=== PATIENT | male | born 1950 | race Caucasian/White ===

== ENCOUNTER 2017-09-02 06:37 | Day surgery (SDC) | payer BC, OTHER ==
[2017-09-01 09:22] VITALS: BMI 30.2
[~2017-09-02 06:37] MED LIST: CHONDROITIN SU A/HYALUR SOD 1 KIT IO ONE; EPINEPHrine/PF 1 MG/1 ML (1:1,000) AMPULE SQ ONE; LIDOCAINE HCL 1% PRESERVATIVE FREE - 30ML VIAL IO ONE; LIDOCAINE HCL 4% PRESERVE-FREE 5 ML AMP TP ONE
[2017-09-02 06:52] VITALS: TEMP 98.1
[2017-09-02] MEDS ORDERED: FLURBIPROFEN 0.03% OPHTH SOLN 2.5 ML BOTTLE ONE (07:00)
[2017-09-02] MEDS ORDERED: TROPICAMIDE 1% OPHTH SOLN 15 ML BOTTLE ONE (07:00)
[2017-09-02] MEDS ORDERED: CYCLOPENTOLATE HCL 1% OPHTH SOLN 2 ML BOTTLE ONE (07:00)
[2017-09-02] MEDS ORDERED: PHENYLEPHRINE 2.5% OPHTH SOLN 15 ML BOTTLE ONE (07:00)
[2017-09-02] MEDS: TROPICAMIDE 1% OPHTH SOLN 15 ML BOTTLE OP SCH ×2 (07:12→07:16)
[2017-09-02] MEDS: PHENYLEPHRINE 2.5% OPHTH SOLN 15 ML BOTTLE OP SCH ×2 (07:12→07:16)
[2017-09-02] MEDS: FLURBIPROFEN 0.03% OPHTH SOLN 2.5 ML BOTTLE OP SCH ×2 (07:12→07:15)
[2017-09-02] MEDS: CYCLOPENTOLATE HCL 1% OPHTH SOLN 2 ML BOTTLE OP SCH ×2 (07:12→07:15)
[2017-09-02] MEDS ORDERED: LIDOCAINE HCL 4% PRESERVE-FREE 5 ML AMP ONE (07:22)
[2017-09-02] MEDS ORDERED: BSS (NA/CA/MG/K) BALANCED SALT SOLUTION OPHTH SOLN 15 ML BOTTLE ONE (07:23)
[2017-09-02] MEDS ORDERED: LIDOCAINE HCL/PF 1% SDV 5ML VIAL ONE (07:23)
[2017-09-02] MEDS ORDERED: POVIDONE-IODINE 5% OPHTHALMIC PREP 30 ML SOLUTION ONE (07:23)
[2017-09-02] MEDS ORDERED: EPINEPHrine/PF 1 MG/1 ML (1:1,000) AMPULE ONE (07:23)
[2017-09-02] MEDS ORDERED: GLYCOPYRROLATE 0.2 MG/1 ML VIAL ONE (08:07)
[2017-09-02] MEDS ORDERED: MIDAZOLAM HCL 2 MG/2 ML SINGLE DOSE VIAL ONE (08:08)
[2017-09-02] MEDS ORDERED: POVIDONE-IODINE 5% OPHTHALMIC PREP 30 ML SOLUTION OD ONE (08:10)
[2017-09-02] MEDS ORDERED: LIDOCAINE HCL 4% PRESERVE-FREE 5 ML AMP TP ONE (08:10)
[2017-09-02] MEDS ORDERED: LIDOCAINE HCL 1% PRESERVATIVE FREE - 30ML VIAL IO ONE (08:15)
[2017-09-02] MEDS ORDERED: CHONDROITIN SU A/HYALUR SOD 1 KIT IO ONE (08:16)
[2017-09-02] MEDS ORDERED: EPINEPHrine/PF 1 MG/1 ML (1:1,000) AMPULE SQ ONE (08:19)
[2017-09-02] MEDS ORDERED: CIPROFLOXACIN HCL 0.3% OPHTH 2.5ML BOTTLE OP SCH (09:00)
[2017-09-02] MEDS ORDERED: CHONDROITIN SU A/HYALUR SOD 1 KIT ONE (09:43)
[2017-09-03 18:25] VITALS: BP 120/60; PULSE 70
--- NOTE | 2017-09-03 21:05 | SPEC ---
DATE OF OPERATION: 09/02/2017 PREOPERATIVE DIAGNOSIS: Complex cataract right eye. POSTOPERATIVE DIAGNOSIS: Complex cataract right eye. PROCEDURE: Planned phacoemulsification posterior chamber lens implantation right eye. ANESTHESIA: Topical. SURGEON: Kady Hamlin M.D. COMPLICATIONS: None. DESCRIPTION OF PROCEDURE: The patient was taken to the operating room after preoperative drops were given to prepare the patient for dilation and surgery. He was then prepped and draped in the usual manner for sterile ophthalmic surgery. After anesthesia began intravenous light fluids and light sedation. The patient then had multiple speculum was inserted into the right eye. The pupil was noted to be very small despite many dilating drops, and multiple side port stab incisions were made for potential pupillary dilators. Infusion of preservative free lidocaine along with Viscoat were then inserted into the eye. The pupil did dilate somewhat, and some additional pupillary stretch was given through the side port incisions. At this time, a 360-degree capsulorrhexis was performed after the temporal incision was made into the anterior chamber, and this was completed successfully. The nucleus was then hydrodissected with balanced saline solution, and then the nucleus was then removed from the eye with phacoemulsification, cortical cleanup was performed, and the posterior capsule was polished under Provisc. A posterior chamber lens was then inserted in the bag and well centered. The remainder of the Viscoat and Provisc were removed from the eye without complications. At this time, the incision was attempted to self seal but did not, and 2 sutures were placed for better wound closure. The sutures were sclerotized and then the knots were then buried in the cornea. The surgery was completed in an uncomplicated fashion, and the patient went to the recovery area in stable condition. KADY HAMLIN M.D. [id number]
== END 2017-09-02 10:45 | disposition home or self-care (01) ==
LOC: JASU-SURG 06:37
PROVIDERS: ATTEND Ophthalmology
PROC: 08RJ3JZ Replacement of Right Lens with Synthetic Substitute, Percutaneous Approach (ICD-10-PCS; principal; 2017-09-02 08:00)
DX: H26.9 Unspecified cataract (principal); H57.04 Mydriasis

== ENCOUNTER 2017-09-30 08:10 | Day surgery (SDC) | payer BC, OTHER ==
[2017-09-29 08:09] VITALS: BMI 30.2
[2017-09-30 08:38] VITALS: TEMP 98
[2017-09-30] MEDS ORDERED: FLURBIPROFEN 0.03% OPHTH SOLN 2.5 ML BOTTLE ONE (08:42)
[2017-09-30] MEDS ORDERED: TROPICAMIDE 1% OPHTH SOLN 15 ML BOTTLE ONE ×2 (08:43→09:02)
[2017-09-30] MEDS ORDERED: PHENYLEPHRINE 2.5% OPHTH SOLN 15 ML BOTTLE ONE (08:43)
[2017-09-30] MEDS ORDERED: CYCLOPENTOLATE HCL 1% OPHTH SOLN 2 ML BOTTLE ONE (08:43)
[2017-09-30] MEDS ORDERED: OFLOXACIN 0.3% OPHTHALMIC SOLUTION 5 ML BOTTLE ONE (08:43)
[2017-09-30] MEDS: PHENYLEPHRINE 2.5% OPHTH SOLN 15 ML BOTTLE OP SCH ×3 (08:50→09:17)
[2017-09-30] MEDS: CIPROFLOXACIN HCL 0.3% OPHTH 2.5ML BOTTLE OP SCH ×3 (08:50→09:13)
[2017-09-30] MEDS: TROPICAMIDE 1% OPHTH SOLN 15 ML BOTTLE OP SCH ×3 (08:50→09:18)
[2017-09-30] MEDS: FLURBIPROFEN 0.03% OPHTH SOLN 2.5 ML BOTTLE OP SCH ×3 (08:50→09:15)
[2017-09-30] MEDS: CYCLOPENTOLATE HCL 1% OPHTH SOLN 2 ML BOTTLE OP SCH ×3 (08:50→09:15)
[2017-09-30] MEDS ORDERED: EPINEPHrine/PF 1 MG/1 ML (1:1,000) AMPULE ONE (09:09)
[2017-09-30] MEDS ORDERED: LIDOCAINE HCL 4% PRESERVE-FREE 5 ML AMP ONE (09:09)
[2017-09-30] MEDS ORDERED: LIDOCAINE HCL/PF 1% SDV 5ML VIAL ONE (09:09)
[2017-09-30] MEDS ORDERED: BSS (NA/CA/MG/K) BALANCED SALT SOLUTION OPHTH SOLN 15 ML BOTTLE ONE (09:10)
[2017-09-30] MEDS ORDERED: CHONDROITIN SU A/HYALUR SOD 1 KIT ONE (09:13)
[2017-09-30] MEDS ORDERED: MIDAZOLAM HCL 2 MG/2 ML SINGLE DOSE VIAL ONE (09:28)
[2017-09-30] MEDS ORDERED: LIDOCAINE HCL 4% TOPICAL SOLN (50 ML/BOTTLE) TP ONE (09:55)
[2017-09-30] MEDS ORDERED: LIDOCAINE HCL 1% PRESERVATIVE FREE - 30ML VIAL IO ONE (10:02)
[2017-09-30] MEDS ORDERED: CHONDROITIN SU A/HYALUR SOD 1 KIT IO ONE (10:03)
[2017-09-30] MEDS ORDERED: EPINEPHrine/PF 1 MG/1 ML (1:1,000) AMPULE SQ ONE (10:06)
[2017-09-30] MEDS ORDERED: ACETAMINOPHEN 325 MG TABLET (FP) PO PRN (10:50)
[2017-09-30 11:37] VITALS: BP 118/63; PULSE 68
== END 2017-09-30 12:21 | disposition home or self-care (01) ==
LOC: JASU-SURG 08:10
PROVIDERS: ATTEND Ophthalmology
PROC: 08RK3JZ Replacement of Left Lens with Synthetic Substitute, Percutaneous Approach (ICD-10-PCS; principal; 2017-09-30 09:30)
DX: H26.9 Unspecified cataract (principal)